=== PATIENT | male | born 1940 | race Caucasian/White ===

== ENCOUNTER 2018-06-29 20:03 | Inpatient (IN) | payer MEDICARE, BC ==
[~2018-06-29] VITALS: Ht 177.8 cm; Wt 89.4 kg
[2018-06-29 20:20] LABS: BASOPHILS % (AUTO) 0.2 % (0-1); EOSINOPHILS # (AUTO) 0.2 X10'3 (0-0.9); HEMATOCRIT 50.4 % (42.0-52.0); HEMOGLOBIN 17.2 g/dl (14.0-17.9); LYMPHOCYTES # (AUTO) 1.6 X10'3 (1.1-4.8); LYMPHOCYTES % (AUTO) 19.6 % (21-51); MEAN CORPUSCULAR HGB CONC 34.1 % (33.0-36.5); MEAN CORPUSCULAR VOLUME 88.1 FL (78-98); MEAN PLATELET VOLUME 8.1 FL (7.4-10.4); MONOCYTES # (AUTO) 0.6 X10'3 (0-0.9); MONOCYTES % (AUTO) 6.7 % (2-12); NEUTROPHILS % (AUTO) 71.5 % (42-75); PLATELET COUNT 308 X10'3 (140-440); RED BLOOD COUNT 5.72 X10'6 (4.70-6.10); RED CELL DISTRIBUTION WIDTH 13.2 % (11.5-14.5); WHITE BLOOD COUNT 8.4 X10'3 (4.5-11.0)
[2018-06-29 20:35] LABS: ALANINE AMINOTRANSFERASE 40 U/L (12-78); ALBUMIN 3.7 G/DL (3.4-5.0); ALKALINE PHOSPHATASE 89 IU/L (46-116); ANION GAP 10 (8-16); ASPARTATE AMINO TRANSFERASE 16 U/L (10-37); BILIRUBIN,TOTAL 0.5 MG/DL (0.1-1.0); BLOOD UREA NITROGEN 20 MG/DL (7-18); BUN/CREATININE RATIO 18.3 (5.4-32.0); CALCIUM 9.6 MG/DL (8.5-10.1); CHLORIDE 104 MMOL/L (99-107); CREATININE 1.09 MG/DL (0.60-1.10); GLUCOSE 188 MG/DL (70-104); POTASSIUM 3.8 MMOL/L (3.5-5.1); SODIUM 136 MMOL/L (135-145); TOTAL CARBON DIOXIDE 22.5 MMOL/L (24-32); TOTAL PROTEIN 7.3 G/DL (6.4-8.2); eGFR 66 ML/MIN
[2018-06-29] MEDS ORDERED: QUIN10TA PO (20:45)
[2018-06-29] MEDS ORDERED: ACYC-202 PO (20:45)
[2018-06-29] MEDS ORDERED: CYA500T PO (20:47)
[2018-06-29] MEDS ORDERED: ASCO500C15 PO (20:47)
[2018-06-29] MEDS ORDERED: XAL0.005OS OP (20:47)
[2018-06-29] MEDS ORDERED: temazepam 15mg capsule PO PRN (21:00)
[2018-06-29] MEDS ORDERED: normal saline 1000ml 1,000 ML IV SCH (21:28)
[2018-06-29] MEDS ORDERED: pantoprazole 40 MG vial IV ONE (21:30)
[2018-06-29] MEDS ORDERED: HYDROcodone/acetaminophen 10/325mg tab PO PRN (21:30)
[2018-06-29] MEDS ORDERED: acetaminophen 325mg tablet PO PRN ×2 (21:30)
[2018-06-29] MEDS ORDERED: HYDROcodone/acetaminophen 5mg/325mg tablet PO PRN (21:30)
[2018-06-29] MEDS ORDERED: diphenhydrAMINE 50 mg/ml inj IV PRN (21:30)
[2018-06-29] MEDS ORDERED: bisacodyl 10mg suppository rectal RC PRN (21:30)
[2018-06-29] MEDS ORDERED: metoclopramide 5 mg/ml inj IV PRN (21:30)
[2018-06-29] MEDS ORDERED: acetaminophen 650mg rectal suppository RC PRN (21:30)
[2018-06-29] MEDS ORDERED: morphine 4 MG/ML inj SYRINge IV PRN ×2 (21:30)
[2018-06-29] MEDS ORDERED: HYDROmorphone inj. 0.5 MG/0.5 ML DISP.SYRIN IV PRN ×2 (21:30)
[2018-06-29] MEDS ORDERED: magnesium hydroxide 30ml (MOM) UD suspension PO PRN (21:30)
[2018-06-29] MEDS ORDERED: diphenhydrAMINE 25mg capsule PO PRN (21:30)
[2018-06-29] MEDS ORDERED: mag hydrox/Alum hydrox/simeth 30ml oral suspension PO PRN (21:30)
[2018-06-29] MEDS ORDERED: ondansetron/PF 4mg/2ml inj IV PRN (21:30)
[2018-06-29] MEDS ORDERED: hydrALAZINE 20mg/ml inj. IV ONE (21:35)
[2018-06-29 22:06] LABS: LIPASE 107 U/L (73-393)
[2018-06-29 22:08] LABS: D-DIMER 1.33 MG/L FEU (0-0.50)
[2018-06-29 22:30] VITALS: BP 121/70
[2018-06-29 23:58] LABS: HEMOGLOBIN A1C 6.8 % (4.5-6.2)
[2018-06-30 00:06] LABS: PHOSPHORUS 2.8 MG/DL (2.3-4.5)
[2018-06-30] MEDS: heparin, porcine 5000 units/ml vial SQ SCH ×3 (00:18→20:16)
[2018-06-30 04:47] LABS: BASOPHILS % (AUTO) 0.4 % (0-1); EOSINOPHILS # (AUTO) 0.1 X10'3 (0-0.9); EOSINOPHILS % (AUTO) 1.5 % (0-6); HEMOGLOBIN 16.2 g/dl (14.0-17.9); LYMPHOCYTES # (AUTO) 1.7 X10'3 (1.1-4.8); LYMPHOCYTES % (AUTO) 17.7 % (21-51); MEAN CORPUSCULAR HEMOGLOBIN 29.7 PG (27.0-31.0); MEAN CORPUSCULAR HGB CONC 33.8 % (33.0-36.5); MEAN CORPUSCULAR VOLUME 87.9 FL (78-98); MEAN PLATELET VOLUME 8.5 FL (7.4-10.4); MONOCYTES # (AUTO) 0.7 X10'3 (0-0.9); MONOCYTES % (AUTO) 7.1 % (2-12); NEUTROPHILS # (AUTO) 6.9 X10'3 (1.8-7.7); NEUTROPHILS % (AUTO) 73.3 % (42-75); PLATELET COUNT 282 X10'3 (140-440); RED BLOOD COUNT 5.46 X10'6 (4.70-6.10); RED CELL DISTRIBUTION WIDTH 13.6 % (11.5-14.5); WHITE BLOOD COUNT 9.4 X10'3 (4.5-11.0)
[2018-06-30 04:54] LABS: ALANINE AMINOTRANSFERASE 32 U/L (12-78); ALBUMIN/GLOBULIN RATIO 0.9 (1.1-1.5); ALKALINE PHOSPHATASE 86 IU/L (46-116); ANION GAP 12 (8-16); ASPARTATE AMINO TRANSFERASE 30 U/L (10-37); BILIRUBIN,TOTAL 0.5 MG/DL (0.1-1.0); BLOOD UREA NITROGEN 19 MG/DL (7-18); BUN/CREATININE RATIO 20.9 (5.4-32.0); CALCIUM 9.3 MG/DL (8.5-10.1); CHLORIDE 104 MMOL/L (99-107); CREATININE 0.91 MG/DL (0.60-1.10); GLUCOSE 155 MG/DL (70-104); POTASSIUM 4.8 MMOL/L (3.5-5.1); SODIUM 134 MMOL/L (135-145); TOTAL CARBON DIOXIDE 18.1 MMOL/L (24-32); TOTAL PROTEIN 6.5 G/DL (6.4-8.2); eGFR 81 ML/MIN
[2018-06-30 04:56] LABS: CHOL/HDL RATIO QNS (0.00-4.99); CHOLESTEROL QNS MG/DL (0-200); HDL CHOLESTEROL QNS MG/DL (35-60); LDL CHOLESTEROL QNS MG/DL (50-100); TRIGLYCERIDES QNS MG/DL (20-135)
[2018-06-30 05:30] LABS: CHOL/HDL RATIO 4.5 (0.00-4.99); CHOLESTEROL 154 MG/DL (0-200); HDL CHOLESTEROL 34 MG/DL (35-60); LDL CHOLESTEROL 81 MG/DL (50-100); TRIGLYCERIDES 195 MG/DL (20-135)
[2018-06-30 06:00] VITALS: BP 144/63
[2018-06-30] MEDS ORDERED: [UNRECOGNIZED DRUG - OTHER] RIGHTEYE ×2 (07:31→09:56)
[2018-06-30] MEDS: docusate sod 100mg capsule PO SCH ×2 (08:00→20:00)
[2018-06-30] MEDS: aspirin 81mg tab.chew PO SCH (08:15)
[2018-06-30] MEDS: acyclovir 200 MG capsule PO SCH ×2 (08:15→20:16)
[2018-06-30] MEDS: atorvastatin 10mg tablet PO SCH (08:16)
[2018-06-30] MEDS: lisinopril 20mg tablet PO SCH (08:16)
[2018-06-30] MEDS: ascorbic acid 500mg tablet PO SCH (08:16)
[2018-06-30] MEDS ORDERED: iohexol 300mg/ml 100ml inj. ONE (09:55)
[2018-06-30] MEDS ORDERED: iohexol 350MG/ML 100ml bottle IV ONE (09:56)
[2018-06-30 11:00] VITALS: BP 132/74
[2018-06-30] MEDS: metoprolol tartrate 25mg tablet PO SCH ×2 (11:55→20:15)
[2018-06-30] MEDS: [UNRECOGNIZED DRUG - OTHER] EACHEYE SCH ×4 (12:00→21:00)
[2018-06-30 19:00] VITALS: BP 137/60
[2018-06-30 23:00] VITALS: BP 149/60
[2018-07-01 03:00] VITALS: BP 106/52
[2018-07-01 05:30] LABS: ALANINE AMINOTRANSFERASE 36 U/L (12-78); ALBUMIN 3.3 G/DL (3.4-5.0); ALKALINE PHOSPHATASE 73 IU/L (46-116); ANION GAP 6 (8-16); ASPARTATE AMINO TRANSFERASE 14 U/L (10-37); BILIRUBIN,TOTAL 0.6 MG/DL (0.1-1.0); BLOOD UREA NITROGEN 21 MG/DL (7-18); BUN/CREATININE RATIO 17.5 (5.4-32.0); CALCIUM 9.1 MG/DL (8.5-10.1); CHLORIDE 105 MMOL/L (99-107); GLUCOSE 138 MG/DL (70-104); POTASSIUM 4.7 MMOL/L (3.5-5.1); SODIUM 139 MMOL/L (135-145); TOTAL CARBON DIOXIDE 27.8 MMOL/L (24-32); TOTAL PROTEIN 6.6 G/DL (6.4-8.2); eGFR 59 ML/MIN
[2018-07-01 06:00] VITALS: BP 129/59
[2018-07-01] MEDS: [UNRECOGNIZED DRUG - OTHER] EACHEYE SCH ×2 (07:11→09:55)
[2018-07-01] MEDS: atorvastatin 10mg tablet PO SCH (07:12)
[2018-07-01] MEDS: aspirin 81mg tab.chew PO SCH (07:12)
[2018-07-01] MEDS: metoprolol tartrate 25mg tablet PO SCH (07:13)
[2018-07-01] MEDS: ascorbic acid 500mg tablet PO SCH (07:14)
[2018-07-01] MEDS: lisinopril 20mg tablet PO SCH (07:14)
[2018-07-01] MEDS: acyclovir 200 MG capsule PO SCH (07:14)
[2018-07-01] MEDS: heparin, porcine 5000 units/ml vial SQ SCH (07:15)
[2018-07-01] MEDS: docusate sod 100mg capsule PO SCH (08:00)
[2018-07-01] MEDS ORDERED: METO25TA6 PO (10:37)
[2018-07-01] MEDS ORDERED: ASPI81TA52 PO (10:37)
[2018-07-01 11:00] VITALS: BP 125/55
== END 2018-07-01 12:15 | disposition home or self-care (01) | DRG 78 ==
LOC: ER 20:04 → ED HOLD 21:28 → PCU 3S 23:03
PROVIDERS: ADMIT Family Medicine; ATTEND Internal Medicine
PROC: 4B02XSZ Measurement of Cardiac Pacemaker, External Approach (ICD-10-PCS; principal; 2018-06-30)
PROC: B32T1ZZ Computerized Tomography (CT Scan) of Left Pulmonary Artery using Low Osmolar Contrast (ICD-10-PCS; 2018-06-30)
PROC: B3201ZZ Computerized Tomography (CT Scan) of Thoracic Aorta using Low Osmolar Contrast (ICD-10-PCS; 2018-06-30)
PROC: B32S1ZZ Computerized Tomography (CT Scan) of Right Pulmonary Artery using Low Osmolar Contrast (ICD-10-PCS; 2018-06-30)
DX: I67.4 Hypertensive encephalopathy (principal); I16.1 Hypertensive emergency; R00.8 Other abnormalities of heart beat; H40.9 Unspecified glaucoma; I10 Essential (primary) hypertension; I49.3 Ventricular premature depolarization; I49.5 Sick sinus syndrome; Z95.0 Presence of cardiac pacemaker; Z79.899 Other long term (current) drug therapy; Z88.8 Allergy status to other drugs, medicaments and biological substances; Z88.0 Allergy status to penicillin
CPT/HCPCS: 36415; 70450; 71045; 71275; 80053; 80061; 83036; 83690; 83735; 83880; 84100; 84484; 85025; 85379; 87070; 93005; 99285; C9113; J0360; J1644; J7030; Q9967